=== PATIENT | male | born 1950 | race Caucasian/White ===

== ENCOUNTER 2020-01-05 11:50 | Inpatient (IN) | payer MEDICARE ==
--- NOTE | 2020-01-05 12:02 | ERPHSYRPT ---
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 Gatica presents with several day history of diarrhea and worsening weakness. Patient was notified today that he has tested positive for COVID-19 virus. He was sent to the emergency room for evaluation and presumed admission. Patient states he does not have significant shortness of breath and he does not have any chest pain or abdominal pain. He does not know of anyone with the COVID-19 positive test. Timing/Duration: day(s) Cough Quality/Degree: mild Possible Cause: no prior episodes Associated Symptoms: cough, other (Weakness and diarrhea), No fever, No muscle aches, No shortness of breath Allergies/Adverse Reactions: No Known Drug Allergies Allergy (Verified 01/05/20 11:56) Home Medications: No Reportable Medications [No Reported Medications] 01/05/20 [History] Hx Tetanus, Diphtheria Vaccination/Date Given: Yes Hx Influenza Vaccination/Date Given: No Hx Pneumococcal Vaccination/Date Given: No Travel Risk - International Travel Have you traveled outside of the country in past 3 weeks: No - Coronavirus Screening Symptoms: Vomiting/Diarrhea Close contact with a COVID-19 positive Pt in past 14-21 Days: No - Review of Systems Constitutional: Weakness Eyes: No Symptoms Ears, Nose, & Throat: No Symptoms Respiratory: Cough (Mild) Cardiac: No Symptoms Abdominal/Gastrointestinal: Diarrhea Genitourinary Symptoms: No Symptoms Musculoskeletal: No Symptoms Skin: No Symptoms Neurological: No Symptoms Psychological: No Symptoms Endocrine: No Symptoms Hematologic/Lymphatic: No Symptoms Immunological/Allergic: No Symptoms All Other Systems: Reviewed and Negative - Past Medical History Pertinent Past Medical History: No Neurological History: No Pertinent History ENT History: No Pertinent History Cardiac History: No Pertinent History Respiratory History: COPD Endocrine Medical History: No Pertinent History Musculoskeletal History: No Pertinent History GI Medical History: No Pertinent History History: No Pertinent History Psycho-Social History: No Pertinent History - Past Surgical History Past Surgical History: No Neuro Surgical History: No Pertinent History Cardiac: No Pertinent History Gastrointestinal: No Pertinent History Genitourinary: No Pertinent History Musculoskeletal: No Pertinent History Male Surgical History: No Pertinent History - Social History Smoking Status: Current every day smoker (3/4 ppd currently) Exposure to second hand smoke: No Drug Use: none Patient Lives Alone: No - Nursing Vital Signs Nursing Vital Signs: Initial Vital Signs Respiratory Rate 01/05/20 12:06 Pain Scale Pain Intensity 0 - Physical Exam General Appearance: mild distress, alert Eye Exam: PERRL/EOMI, eyes nml inspection Ears, Nose, Throat Exam: normal ENT inspection, moist mucous membranes Neck Exam: normal inspection, non-tender, supple, full range of motion Respiratory Exam: normal breath sounds, lungs clear, airway intact, No chest tenderness, No respiratory distress Cardiovascular Exam: regular rate/rhythm, normal heart sounds, normal peripheral pulses Gastrointestinal/Abdomen Exam: soft, normal bowel sounds, No tenderness Rectal Exam: not done Back Exam: normal inspection, normal range of motion, No CVA tenderness, No vertebral tenderness Extremity Exam: normal inspection, normal range of motion, pelvis stable Neurologic Exam: alert, oriented x 3, cooperative Skin Exam: normal color, warm, dry Lymphatic Exam: No adenopathy SpO2 Interpretation: normal O2 Delivery: Room Air - Course Nursing assessment & vital signs reviewed: Yes Ordered Tests: Active Orders 24 hr Category Date Time Status EKG-ER Only STAT Care 01/05/20 12:14 Active IV Insertion STAT Care 01/05/20 12:14 Active Isolation, Initiate & Maintain STAT Care 01/05/20 12:14 Active CHEST 1 VIEW (PORTABLE) Stat Exams 01/05/20 12:41 Completed CHEST WITH CONTRAST [CT] Stat Exams 01/05/20 14:12 Completed CBC W DIFF Stat Lab 01/05/20 12:20 Completed CMP Stat Lab 01/05/20 12:20 Completed D-DIMER QUANTITATIVE Stat Lab 01/05/20 12:20 Completed Ferritin Stat Lab 01/05/20 12:20 Completed LDH-LACTATE DEHYDROGENASE Stat Lab 01/05/20 12:20 Completed Lactic Acid Stat Lab 01/05/20 12:14 Completed Transfer Order Routine Transfer 01/05/20 Ordered Medication Summary Generic Name Dose Route Start Last Admin Trade Name Freq PRN Reason Stop Dose Admin Sodium Chloride 1,000 mls @ 100 mls/hr 01/05/20 12:15 01/05/20 12:27 Sodium Chloride 0.9% 1000 Ml IV 02/04/20 12:14 100 mls/hr .Q10H SAVANAH Administration Discontinued Medications Generic Name Dose Route Start Last Admin Trade Name Tanvirq PRN Reason Stop Dose Admin Ondansetron HCl 4 mg 01/05/20 12:14 01/05/20 15:25 Zofran 4 Mg/2 Ml Vial IV 01/05/20 12:15 Not Given STAT ONE Ondansetron HCl Confirm 01/05/20 12:23 Zofran 4 Mg/2 Ml Vial Administered 01/05/20 12:24 Dose 4 mg .ROUTE .STK-MED ONE Lab/Rad Data: Laboratory Result Diagrams 01/05/20 12:20 01/05/20 12:20 Laboratory Results 01/05/20 01/05/20 01/05/20 Range/Units 12:30 12:20 12:20 WBC (4.0-10.5) K/mm3 RBC (4.1-5.6) M/mm3 Hgb (12.5-18.0) gm/dl Hct (42-50) % MCV (78-100) fl MCH (26-32) pg MCHC (32-36) g/dl RDW (11.5-14.0) % Plt Count (150-450) K/mm3 MPV (7.5-11.0) fl Gran % (36.0-66.0) % Eos # (Auto) (0-0.5) Absolute Lymphs (auto) (1.0-4.6) Absolute Monos (auto) (0.0-1.3) Lymphocytes % (24.0-44.0) % Monocytes % (0.0-12.0) % Eosinophils % (0.00-5.0) % Basophils % (0.0-0.4) % Absolute Granulocytes (1.4-6.9) Basophils # (0-0.4) D-Dimer 1521 H* (215-500) ng/mL Sodium (137-145) mmol/L Potassium (3.5-5.1) mmol/L Chloride (98-107) mmol/L Carbon Dioxide (22-30) mmol/L Anion Gap (5-15) MEQ/L BUN (9-20) mg/dL Creatinine (0.66-1.25) mg/dL Estimated GFR ML/MIN Glucose (74-106) mg/dL Lactic Acid (0.4-2.0) Calcium (8.4-10.2) mg/dL Ferritin 689 H (17.9-464) ng/mL Total Bilirubin (0.2-1.3) mg/dL AST (17-59) U/L ALT (0-50) U/L Alkaline Phosphatase (38-126) U/L Lactate Dehydrogenase (120-246) U/L Serum Total Protein (6.3-8.2) g/dL Albumin (3.5-5.0) g/dL Influenza Type A Ag NEGATIVE (NEGATIVE) Influenza Type B Ag NEGATIVE (NEGATIVE) RSV (PCR) NEGATIVE (Negative) 01/05/20 01/05/20 01/05/20 Range/Units 12:20 12:20 12:14 WBC 4.6 (4.0-10.5) K/mm3 RBC 5.07 (4.1-5.6) M/mm3 Hgb 15.7 (12.5-18.0) gm/dl Hct 46.5 (42-50) % MCV 91.7 (78-100) fl MCH 31.0 (26-32) pg MCHC 33.8 (32-36) g/dl RDW 13.9 (11.5-14.0) % Plt Count 114 L (150-450) K/mm3 MPV 10.4 (7.5-11.0) fl Gran % 75.8 H (36.0-66.0) % Eos # (Auto) 0.01 (0-0.5) Absolute Lymphs (auto) 0.64 L (1.0-4.6) Absolute Monos (auto) 0.45 (0.0-1.3) Lymphocytes % 14.0 L (24.0-44.0) % Monocytes % 9.8 (0.0-12.0) % Eosinophils % 0.2 (0.00-5.0) % Basophils % 0.2 (0.0-0.4) % Absolute Granulocytes 3.46 (1.4-6.9) Basophils # 0.01 (0-0.4) D-Dimer (215-500) ng/mL Sodium 137 (137-145) mmol/L Potassium 4.2 (3.5-5.1) mmol/L Chloride 106 (98-107) mmol/L Carbon Dioxide 22 (22-30) mmol/L Anion Gap 13.3 (5-15) MEQ/L BUN 25 H (9-20) mg/dL Creatinine 1.42 H (0.66-1.25) mg/dL Estimated GFR 52.4 ML/MIN Glucose 126 H (74-106) mg/dL Lactic Acid 2.2 H (0.4-2.0) Calcium 9.4 (8.4-10.2) mg/dL Ferritin (17.9-464) ng/mL Total Bilirubin 0.60 (0.2-1.3) mg/dL AST 63 H (17-59) U/L ALT 36 (0-50) U/L Alkaline Phosphatase 65 (38-126) U/L Lactate Dehydrogenase 673 H (120-246) U/L Serum Total Protein 7.4 (6.3-8.2) g/dL Albumin 3.9 (3.5-5.0) g/dL Influenza Type A Ag (NEGATIVE) Influenza Type B Ag (NEGATIVE) RSV (PCR) (Negative) - Progress Progress: improved, re-examined Air Movement: good Progress Note: 01/05/20 13:09 Chest x-ray read by radiologist no acute cardiopulmonary process. Chronic featu res only. 01/05/20 13:[address] Gomez, who is the COVID-19 unit hospitalist product safety consultant, conc erning this patient. I reviewed the patient history, condition, laboratory results and chest x-ray findings. Dr. Gomez wanted me to obtain a d-dimer. If it is elevated we will do a CTA of the chest. He accepts the patient for admission into the COVID unit here at [facility]. However, we will wait until the d-dimer result is back. And proceed from there. 01/05/20 15:28 CTA of chest: Pulmonary embolus evaluation limited by respiration artifact. No central pulmonary emboli present. Pulmonary emphysema with extensive scattered fibrosis/scarring bilateral upper lobe noncalcified masslike opacities malignancy versus fibrosis/scarring Blood Culture(s) Obtained: No Discussed with DrDanyelle: Other (Dr. Villalba.) Counseled pt/family regarding: lab results, diagnosis, rad results - Departure Departure Disposition: In-patient Admission Clinical Impression: COVID-19 virus infection, Weakness, Diarrhea Condition: Fair Critical Care Time: No Referrals: [facility] [Primary Care Provider] -
[2020-01-05] MEDS ORDERED: Zofran 4 MG/2 ML VIAL IV ONE (12:14)
[2020-01-05] MEDS ORDERED: Sodium Chloride 0.9% 1000 ML 1,000 ML IV SCH ×2 (12:15→15:57)
[2020-01-05] MEDS ORDERED: Zofran 4 MG/2 ML VIAL ONE (12:23)
[2020-01-05 12:32] LABS: Absolute Neutrophil Ct (ANC) 3.46 (1.4-6.9); BASOPHIL % 0.2 % (0.0-0.4); Basophil (Absolute #) 0.01 (0-0.4); Eosinophil % 0.2 % (0.00-5.0); Eosinophil (Absolute #) 0.01 (0-0.5); Hematocrit 46.5 % (42-50); Hemoglobin 15.7 gm/dl (12.5-18.0); Lymphocyte (Absolute #) 0.64 (1.0-4.6); Mean Cell Volume 91.7 fl (78-100); Mean Corpuscular Hgb Concent. 33.8 g/dl (32-36); Mean Platelet Volume 10.4 fl (7.5-11.0); Monocyte (Absolute #) 0.45 (0.0-1.3); Monocytes % 9.8 % (0.0-12.0); Neutrophil % 75.8 % (36.0-66.0); Platelet Count 114 K/mm3 (150-450); Red Blood Count 5.07 M/mm3 (4.1-5.6); Red Cell Distribution Width 13.9 % (11.5-14.0); White Blood Count 4.6 K/mm3 (4.0-10.5)
[2020-01-05 12:46] LABS: ALBUMIN 3.9 g/dL (3.5-5.0); ANION GAP 13.3 MEQ/L (5-15); BILIRUBIN,TOTAL 0.6 mg/dL (0.2-1.3); Calcium 9.4 mg/dL (8.4-10.2); Creatinine 1 1.42 mg/dL (0.66-1.25); EST GLOMERULAR FILTRATION RATE 52.4 ML/MIN; Potassium 4.2 mmol/L (3.5-5.1); Total Protein 7.4 g/dL (6.3-8.2)
--- NOTE | 2020-01-05 13:06 | XRAY ---
Indication: Cough. Suspect Covid 19. Comparison: January 31, 2016. Portable chest again demonstrates COPD with scattered bilateral fibrosis/scarring. Previous left lung airspace disease has cleared. No focal infiltrate, consolidation, or large effusion. Heart is not enlarged. Bony thorax intact again with mild osteopenia, old left clavicle fracture, and mild scoliosis. Impression: Nonacute chest with chronic features.
[2020-01-05 13:07] LABS: INFLUENZA A NEGATIVE (NEGATIVE); INFLUENZA B NEGATIVE (NEGATIVE); RESPIRATORY SYNCTIAL VIRUS NEGATIVE (Negative)
--- NOTE | 2020-01-05 15:24 | XRAY ---
Indication: Short of breath, fever, and elevated d-dimer. Positive Covid 19. COPD. Multiple contiguous axial images obtained through the chest using 80 cc Isovue 370 contrast and PE protocol. Comparison: None There is good opacification of the pulmonary arteries to include the lobar and segmental branches. However respiration artifact limits evaluation of the more distal segmental branches. No central pulmonary embolus. Heart is not enlarged. Aorta is mildly arteriosclerotic without aneurysm/dissection. Small mediastinal nodes, largest precarinal measuring 1.2 x 1.6 cm. No pathologic hilar lymphadenopathy. Lungs demonstrates diffuse pulmonary emphysema with scattered fibrosis/scarring. Right upper lobe with demonstrates large irregular noncalcified masslike opacity measuring at least 2.0 x 5.7 x 3.9 cm. Left upper lobe demonstrates 3 small irregular noncalcified masslike opacities, largest anterior medially measuring 1.1 x 1.7 x 2.6 cm. Findings may represent fibrosis/scarring with malignancy not completely excluded. No infiltrate or effusion. Bony thorax intact with mild osteopenia and old left clavicle fracture. Limited upper abdomen demonstrates nonobstructing right renal punctate calculus and 1.2 cm left mid renal exophytic cyst. Impression: 1. Pulmonary embolus evaluation limited by respiration artifact. No central pulmonary ambers. 2. Pulmonary emphysema with extensive scattered fibrosis/scarring. 3. Bilateral upper lobe noncalcified masslike opacities as detailed. Rule out malignancy versus fibrosis/scarring. Outside comparison studies recommended if available. If not, PET/CT may yield further information. 4. Incidental right renal micro-calculus, left renal cyst, and chronic bony findings.
[2020-01-05] MEDS ORDERED: TYLENOL 325 MG PO PRN (15:57)
[2020-01-05] MEDS ORDERED: Zofran 4 MG/2 ML VIAL IV PRN (15:57)
[2020-01-05] MEDS ORDERED: Ativan 1 MG PO PRN (16:04)
[2020-01-05] MEDS ORDERED: ZOFRAN ODT 4 MG PO PRN (16:12)
[2020-01-05] MEDS ORDERED: Lactated Ringers 1,000 ML IV SCH (16:30)
[2020-01-05] MEDS ORDERED: REMDESIVIR 200 MG in Sodium Chloride 0.9% 250 ML 250 ML IV SCH (17:00)
[2020-01-05] MEDS: ENOXAPARIN SODIUM SQ SCH (17:01)
[2020-01-05] MEDS ORDERED: Ativan 2 MG/1 ML VIAL IV PRN (17:24)
[2020-01-05] MEDS: Pepcid 20 MG VIAL IV SCH (17:42)
[2020-01-05] MEDS: Decadron 4 MG INJ IV SCH (17:42)
[2020-01-05] MEDS ORDERED: Decadron 4 MG PO SCH (18:30)
[2020-01-05] MEDS ORDERED: Ativan 1 MG PO SCH (22:00)
[2020-01-05] MEDS ORDERED: Pepcid 20 MG PO SCH (22:00)
[2020-01-05] MEDS ORDERED: Ativan 2 MG/1 ML VIAL IV SCH (22:00)
[2020-01-06 05:26] LABS: Absolute Neutrophil Ct (ANC) 2.08 (1.4-6.9); Basophil (Absolute #) 0 (0-0.4); Eosinophil (Absolute #) 0 (0-0.5); Hematocrit 42.7 % (42-50); Hemoglobin 14.5 gm/dl (12.5-18.0); Lymphocyte (Absolute #) 0.35 (1.0-4.6); Lymphocytes % 12.4 % (24.0-44.0); Mean Cell Volume 90.7 fl (78-100); Mean Corpuscular Hemoglobin 30.8 pg (26-32); Mean Platelet Volume 10.4 fl (7.5-11.0); Monocytes % 14.1 % (0.0-12.0); Neutrophil % 73.5 % (36.0-66.0); Platelet Count 125 K/mm3 (150-450); Red Blood Count 4.71 M/mm3 (4.1-5.6); Red Cell Distribution Width 13.7 % (11.5-14.0); White Blood Count 2.8 K/mm3 (4.0-10.5)
[2020-01-06 05:43] LABS: ALBUMIN 3.4 g/dL (3.5-5.0); ALKALINE PHOSPHATASE 62 U/L (38-126); ANION GAP 11.3 MEQ/L (5-15); BLOOD UREA NITROGEN 22 mg/dL (9-20); CHLORIDE 111 mmol/L (98-107); Calcium 8.4 mg/dL (8.4-10.2); Carbon Dioxide 17 mmol/L (22-30); Creatinine 1 1.01 mg/dL (0.66-1.25); EST GLOMERULAR FILTRATION RATE > 60.0 ML/MIN; Glucose 133 mg/dL (74-106); Potassium 4.5 mmol/L (3.5-5.1); SGOT/AST 59 U/L (17-59); SGPT/ALT 36 U/L (0-50); SODIUM 135 mmol/L (137-145); Total Protein 6.6 g/dL (6.3-8.2)
[2020-01-06 06:47] LABS: Slide Review 1 YES
[2020-01-06] MEDS: Pepcid 20 MG VIAL IV SCH (10:51)
[2020-01-06] MEDS: Decadron 4 MG INJ IV SCH (10:51)
[2020-01-06] MEDS: ENOXAPARIN SODIUM SQ SCH (10:59)
[2020-01-06] MEDS ORDERED: Lasix 20 MG/2 ML IV ONE (11:00)
--- NOTE | 2020-01-06 11:09 | SSS ---
DISCHARGE DIAGNOSES: 1) COVID. 2) COVID GASTRITIS. 3) COVID BRONCHITIS. 4) CHRONIC OBSTRUCTIVE PULMONARY DISEASE. 5) MASS IN LUNG. HISTORY: The patient came in after eight days of weakness and shortness of breath, five days of nausea. He has had diarrhea. No fever. Just not feeling well. He had COVID test in the emergency room which was positive. He does not know of anyone else he has been with who has COVID in the last 14 days. He denies any high fevers or chills. He also had some diarrhea and abdominal pain. No problems urinating. No muscle aches or pains. Skin no symptoms. He is normally short of breath. He is a heavy smoker. He quit the other day. He has history of chronic obstructive pulmonary disease. He does have a Proventil inhaler I believe. History of GI problems. He does live with his . No drug use. PHYSICAL EXAMINATION: The patient is alert, orientated and a little older than stated 69 years of age. A very pleasant man. HEENT: Normal. NECK: Supple without adenopathy. CHEST: Clear. CVS: No murmurs or gallops. ABDOMEN: Soft. EXTREMITIES: No cyanosis. Thin, still muscular. IMPRESSION: The patient has COVID with hypoxia. D-dimer is 1,500. His white count is normal. Chest x-ray is okay but CT scan showed mass in the upper lobe of both sides unknown etiology and will have to be worked up later. Further questioning did show that he has been vomiting and not holding fluids well. PLAN: The patient was admitted for IV steroids, Lovenox, Zofran, Remdesivir, oxygen. PROGNOSIS: Fair. I note he is getting more hypoxic as the day goes on, will keep a close watch on him.
[2020-01-06 13:22] VITALS: BP 99/71
[2020-01-06 15:02] VITALS: O2SAT 92
[2020-01-06 15:16] VITALS: PULSE 79
[2020-01-06] MEDS ORDERED: REMDESIVIR 100 MG in Sodium Chloride 0.9% 100 ML IVPB 100 ML IV SCH (17:00)
== END 2020-01-06 15:55 | disposition short-term general hospital (02) | DRG 179 ==
LOC: ED 11:50 → MED SURG 15:56
PROVIDERS: ADMIT Family Medicine; ATTEND Family Medicine
DX: U07.1 COVID-19 (principal); K29.70 Gastritis, unspecified, without bleeding; J40 Bronchitis, not specified as acute or chronic; J44.9 Chronic obstructive pulmonary disease, unspecified; R91.8 Other nonspecific abnormal finding of lung field; R53.1 Weakness; R09.02 Hypoxemia; R19.7 Diarrhea, unspecified
CPT/HCPCS: 36000; 36415; 71045; 71260; 80053; 82728; 83605; 83615; 85025; 85379; 87631; 93005; 94762; 96360; 96361; 99285; U0003; J1100; J1650; J1940; J2060; J2405

== ENCOUNTER 2020-01-26 10:15 | Inpatient (IN) | payer MEDICARE ==
[2020-01-26] MEDS ORDERED: DUONEB 0.5-3 MG/3 ml Neb IH ONE (10:20)
--- NOTE | 2020-01-26 10:36 | ERPHSYRPT ---
- History of Present Illness Time Seen by Provider: 01/26/20 10:16 Source: patient, EMS Exam Limitations: no limitations Patient Subjective Stated Complaint: pt here for increase sob today, pt was covid 19 postive 01/13/2020. pt is on home o2 at 2l nc at home and was 81%, o2 increased, cough Triage Nursing Assessment: pt alert, resp easy, sat 71% on 3 l after moving self over on to bed. face mask in place, abd soft, moves all ext well Physician History: 70yo wm released from [facility] on 01/17 presents w dyspnea x 4 days. Pt is O2 dep at home. Cough is minimal, and he denies fever/N/V/CP/melena/hematochezia. He has had mild diarrhea and smoked 1ppd until covid admit. Timing/Duration: other (4days) Activities at Onset: rest Possible Cause: occasional episodes Modifying Factors: Improves With: activity Associated Symptoms: cough, No constant, No intermittent, No anxiety, No chest p ain/discomfort, No edema, No fever, No insomnia, No loss of appetite, No lightheadedness, No wheezing, No weakness, No ankle swelling, No chills, No hemoptysis, No calf pain, No dizziness, No heaviness, No heart racing, No lightheadedness, No leg swelling, No muscle spasms feet, No muscle spasms hands, No painful breathing, No productive cough, No sweating, No tightness, No tingling face Allergies/Adverse Reactions: levofloxacin [From Levaquin] Adverse Reaction (Verified 01/26/20 10:31) Home Medications: No Reportable Medications [No Reported Medications] 01/05/20 [History] Hx Tetanus, Diphtheria Vaccination/Date Given: Yes Hx Influenza Vaccination/Date Given: No Hx Pneumococcal Vaccination/Date Given: No Immunizations Up to Date: Yes Travel Risk - International Travel Have you traveled outside of the country in past 3 weeks: No - Coronavirus Screening Are you exhibiting any of the following symptoms?: Yes Symptoms: Cough: New Onset, Shortness of Breath - Review of Systems Constitutional: No Symptoms Eyes: No Symptoms Ears, Nose, & Throat: No Symptoms Respiratory: Cough, Dyspnea Cardiac: No Symptoms Abdominal/Gastrointestinal: No Symptoms, Diarrhea Genitourinary Symptoms: No Symptoms Musculoskeletal: No Symptoms Skin: No Symptoms Neurological: No Symptoms Psychological: No Symptoms Endocrine: No Symptoms Hematologic/Lymphatic: No Symptoms Immunological/Allergic: No Symptoms - Past Medical History Pertinent Past Medical History: Yes Neurological History: No Pertinent History ENT History: No Pertinent History Cardiac History: No Pertinent History Respiratory History: COPD Endocrine Medical History: No Pertinent History Musculoskeletal History: No Pertinent History GI Medical History: No Pertinent History History: No Pertinent History Psycho-Social History: No Pertinent History - Past Surgical History Past Surgical History: No Neuro Surgical History: No Pertinent History Cardiac: No Pertinent History Gastrointestinal: No Pertinent History Genitourinary: No Pertinent History Musculoskeletal: No Pertinent History Male Surgical History: No Pertinent History - Social History Smoking Status: Former smoker Exposure to second hand smoke: No Drug Use: none Patient Lives Alone: Yes - Nursing Vital Signs Nursing Vital Signs: Initial Vital Signs Respiratory Rate 20 01/26/20 10:17 O2 Sat by Pulse Oximetry 92 L 01/26/20 10:17 Pain Scale Pain Intensity 0 - Physical Exam General Appearance: mild distress Eye Exam: PERRL/EOMI, eyes nml inspection Ears, Nose, Throat Exam: hearing grossly normal Neck Exam: normal inspection, non-tender Respiratory Exam: respiratory distress (Mild-Mod), crackles/rales (Rales 1/4 up B) Cardiovascular/Chest Exam: tachycardia, No murmur, No JVD Abdominal/Gastrointestinal Exam: soft, normal bowel sounds, No tenderness Extremity Exam: non-tender Neurologic Exam: alert, oriented x 3, cooperative, 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, normal mood/affect, nml cerebellar function, sensation nml, No motor deficits, No sensory deficit Skin Exam: mottled, pale Lymphatic Exam: No adenopathy SpO2 Interpretation: borderline oxygenation SpO2: 92 O2 Delivery: Non-rebreather - Course EKG Interpreted by Me: RATE (Sinus tach/Normal QT-QTc/No acute ST-T wave changes) - Radiology Exams Chest X-ray Interpretation: Discussed w/ radiologist (LLL infiltrate per Rad) Ordered Tests: Active Orders 24 hr Category Date Time Status EKG-ER Only STAT Care 01/26/20 10:19 Completed Heart-Healthy Diet Diet 01/26/20 Dinner Active CHEST 1 VIEW (PORTABLE) Stat Exams 01/26/20 10:17 Completed ABG [ARTERIAL BLOOD GASES] Stat Lab 01/26/20 10:25 Completed ABG [ARTERIAL BLOOD GASES] Stat Lab 01/26/20 13:49 Completed BLOOD CULTURE Stat Lab 01/26/20 12:11 Stop Req CBC W DIFF AM.LAB Lab 01/27/20 04:00 Ordered CBC W DIFF Stat Lab 01/26/20 10:30 Completed CMP AM.LAB Lab 01/27/20 04:00 Ordered CMP Stat Lab 01/26/20 10:30 Completed D-DIMER QUANTITATIVE Stat Lab 01/26/20 Completed Lactic Acid Stat Lab 01/26/20 10:26 Completed Manual Differential NC Stat Lab 01/26/20 10:30 Completed NT PRO BNP Urgent Lab 01/26/20 10:30 Completed PROTIME WITH INR Stat Lab 01/26/20 10:30 Completed PTT Stat Lab 01/26/20 10:30 Completed TROPONIN Q3H Lab 01/26/20 10:30 Completed TROPONIN Q3H Lab 01/26/20 13:25 Completed TROPONIN Q3H Lab 01/26/20 16:30 Ordered TROPONIN Q3H Lab 01/26/20 19:30 Ordered TROPONIN Q3H Lab 01/26/20 22:30 Ordered Transfer Order Routine Transfer 01/26/20 Completed Medication Summary Generic Name Dose Route Start Last Admin Trade Name Freq PRN Reason Stop Dose Admin Albuterol Sulfate 4 puff 01/26/20 15:00 01/26/20 14:35 Ventolin Common Canister IH 02/25/20 14:59 4 puff Q4HRT SAVANAH Administration Dexamethasone Sodium Phosphate 4 mg 01/26/20 13:00 01/26/20 13:05 Decadron 4 Mg Inj IV 02/25/20 12:59 4 mg Q6H SAVANAH Administration Dexamethasone Sodium Phosphate 4 mg 01/26/20 22:00 Decadron 4 Mg Inj IV 02/25/20 21:59 BID SAVANAH Enoxaparin Sodium 40 mg 01/26/20 15:00 Enoxaparin Sodium SQ 02/25/20 14:59 DAILY SAVANAH Sodium Chloride 1,000 mls @ 80 mls/hr 01/26/20 13:15 01/26/20 13:40 Sodium Chloride 0.9% 1000 Ml IV 02/25/20 13:14 80 mls/hr .[id number] SAVANAH Administration Azithromycin 500 mg in 250 mls @ 250 mls/hr 01/26/20 15:00 Zithromax 500 Mg/ 250 Ml Nacl Premix IV 02/25/20 14:59 Q24H10 SAVANAH Ceftriaxone Sodium/Dextrose 1 g in 50 mls @ 100 mls/hr 01/27/20 10:00 Rocephin 1 Gm-D5w 50 Ml Bag IV 02/26/20 09:59 Q24H10 SAVANAH Remdesivir 200 mg/ Sodium 250 mls @ 125 mls/hr 01/26/20 13:07 01/26/20 13:40 Chloride IV 01/26/20 15:06 125 mls/hr ONCE ONE Administration Ondansetron HCl 4 mg 01/26/20 13:02 Zofran 4 Mg/2 Ml Vial IV 02/25/20 13:01 Q6H PRN PRN NAUSEA/VOMITING Discontinued Medications Generic Name Dose Route Start Last Admin Trade Name Freq PRN Reason Stop Dose Admin Albuterol Sulfate 4 puff 01/26/20 11:19 01/26/20 10:26 Ventolin Common Canister IH 01/26/20 11:20 4 puff ONCE ONE Administration Albuterol/Ipratropium 3 ml 01/26/20 10:20 01/26/20 11:16 Duoneb 0.5-3 Mg/3 Ml Neb IH 01/26/20 10:21 Not Given STAT ONE Ceftriaxone Sodium/Dextrose 1 g in 50 mls @ 100 mls/hr 01/26/20 11:44 01/26/20 12:38 Rocephin 1 Gm-D5w 50 Ml Bag IV 01/26/20 12:13 Infused STAT STA Infusion Ceftriaxone Sodium/Dextrose Confirm 01/26/20 12:03 Rocephin 1 Gm-D5w 50 Ml Bag Administered 01/26/20 12:04 Dose 1 g in 50 mls @ ud IV .K-MED ONE Lab/Rad Data: Laboratory Result Diagrams 01/26/20 10:30 01/26/20 10:30 Laboratory Results 01/26/20 01/26/20 01/26/20 Range/Units 13:49 13:25 10:30 WBC (4.0-10.5) K/mm3 RBC (4.1-5.6) M/mm3 Hgb (12.5-18.0) gm/dl Hct (42-50) % MCV (78-100) fl MCH (26-32) pg MCHC (32-36) g/dl RDW (11.5-14.0) % Plt Count (150-450) K/mm3 MPV (7.5-11.0) fl PT (8.83-12.87) SECONDS INR (0.8-3.0) APTT (24.1-36.1) SECONDS Puncture Site LEFT RADIAL pCO2 28 L (35-45) mmHg pO2 134 H* (75-100) mmHg Base Excess -0.9 (-2.0-2.0) O2 Saturation 97.3 (94-100) g/dF ABG pH 7.49 H (7.35-7.45) ABG HCO3 21.3 L (22-28) ABG O2 Sat (Measured) 99.4 (95-100) % Jovani Test YES A-a Gradient 544 a/A Ratio 0.20 Hemoglobin 12.6 Carboxyhemoglobin 1.1 (0.0-6.9) % THgb Methemoglobin 0.9 L (1.4-1.5) % Potassium 4.2 (3.5-5.1) Temperature 37.0 C POC O2 Flow Rate 100 % Sodium (137-145) mmol/L Chloride (98-107) mmol/L Carbon Dioxide (22-30) mmol/L Anion Gap (5-15) MEQ/L BUN (9-20) mg/dL Creatinine (0.66-1.25) mg/dL Estimated GFR ML/MIN Glucose (74-106) mg/dL Lactic Acid (0.4-2.0) Calcium (8.4-10.2) mg/dL Total Bilirubin (0.2-1.3) mg/dL AST (17-59) U/L ALT (0-50) U/L Alkaline Phosphatase (38-126) U/L Troponin I < 0.012 < 0.012 (0.000-0.034) ng/mL NT-Pro-B Natriuret Pep 365 (0-900) pg/mL Serum Total Protein (6.3-8.2) g/dL Albumin (3.5-5.0) g/dL 01/26/20 01/26/20 01/26/20 Range/Units 10:30 10:30 10:30 WBC 8.2 (4.0-10.5) K/mm3 RBC 4.07 L (4.1-5.6) M/mm3 Hgb 12.5 (12.5-18.0) gm/dl Hct 38.9 L (42-50) % MCV 95.6 (78-100) fl MCH 30.7 (26-32) pg MCHC 32.1 (32-36) g/dl RDW 13.7 (11.5-14.0) % Plt Count 151 (150-450) K/mm3 MPV 10.1 (7.5-11.0) fl PT 23.5 H (8.83-12.87) SECONDS INR 2.06 (0.8-3.0) APTT 35.4 (24.1-36.1) SECONDS Puncture Site pCO2 (35-45) mmHg pO2 (75-100) mmHg Base Excess (-2.0-2.0) O2 Saturation (94-100) g/dF ABG pH (7.35-7.45) ABG HCO3 (22-28) ABG O2 Sat (Measured) (95-100) % Jovani Test A-a Gradient a/A Ratio Hemoglobin Carboxyhemoglobin (0.0-6.9) % THgb Methemoglobin (1.4-1.5) % Potassium 4.5 (3.5-5.1) Temperature C POC O2 Flow Rate % Sodium 136 L (137-145) mmol/L Chloride 107 (98-107) mmol/L Carbon Dioxide 23 (22-30) mmol/L Anion Gap 10.0 (5-15) MEQ/L BUN 13 (9-20) mg/dL Creatinine 0.94 (0.66-1.25) mg/dL Estimated GFR > 60.0 ML/MIN Glucose 112 H (74-106) mg/dL Lactic Acid (0.4-2.0) Calcium 9.0 (8.4-10.2) mg/dL Total Bilirubin 0.80 (0.2-1.3) mg/dL AST 30 (17-59) U/L ALT 40 (0-50) U/L Alkaline Phosphatase 86 (38-126) U/L Troponin I (0.000-0.034) ng/mL NT-Pro-B Natriuret Pep (0-900) pg/mL Serum Total Protein 7.4 (6.3-8.2) g/dL Albumin 3.4 L (3.5-5.0) g/dL 01/26/20 01/26/20 Range/Units 10:26 10:25 WBC (4.0-10.5) K/mm3 RBC (4.1-5.6) M/mm3 Hgb (12.5-18.0) gm/dl Hct (42-50) % MCV (78-100) fl MCH (26-32) pg MCHC (32-36) g/dl RDW (11.5-14.0) % Plt Count (150-450) K/mm3 MPV (7.5-11.0) fl PT (8.83-12.87) SECONDS INR (0.8-3.0) APTT (24.1-36.1) SECONDS Puncture Site RIGHT RADIAL pCO2 27 L (35-45) mmHg pO2 54 L (75-100) mmHg Base Excess -3.2 L (-2.0-2.0) O2 Saturation 87.0 L (94-100) g/dF ABG pH 7.46 H (7.35-7.45) ABG HCO3 19.2 L (22-28) ABG O2 Sat (Measured) 89.0 L (95-100) % Jovani Test YES A-a Gradient 625 a/A Ratio 0.08 Hemoglobin 12.8 Carboxyhemoglobin 1.8 (0.0-6.9) % THgb Methemoglobin 0.5 L (1.4-1.5) % Potassium 4.0 (3.5-5.1) Temperature 37.0 C POC O2 Flow Rate 100 % Sodium (137-145) mmol/L Chloride (98-107) mmol/L Carbon Dioxide (22-30) mmol/L Anion Gap (5-15) MEQ/L BUN (9-20) mg/dL Creatinine (0.66-1.25) mg/dL Estimated GFR ML/MIN Glucose (74-106) mg/dL Lactic Acid 1.2 (0.4-2.0) Calcium (8.4-10.2) mg/dL Total Bilirubin (0.2-1.3) mg/dL AST (17-59) U/L ALT (0-50) U/L Alkaline Phosphatase (38-126) U/L Troponin I (0.000-0.034) ng/mL NT-Pro-B Natriuret Pep (0-900) pg/mL Serum Total Protein (6.3-8.2) g/dL Albumin (3.5-5.0) g/dL - Progress Air Movement: fair Progress Note: 01/26/20 13:00 Admit to Covid unit per Dr. Gomez 01/26/20 13:10 Pt w low sats on 6L NC and only minimally improved w 100% NR mask. Pt much improved on high flow O2. [facility] to admit here which pt prefers. Dr. Gomez wants to start Decadron 4mg IV BID and Remdisivir. Blood cultures done and rocephin 1gm IV given. 01/26/20 14:54 Counseled pt/family regarding: lab results, diagnosis, rad results - Departure Departure Disposition: Observation Clinical Impression: Pneumonia Condition: Stable Critical Care Time: Yes Critical Care Time(excluding separately billable procedures): Critical 30-74 mins
[2020-01-26 10:37] LABS: Hematocrit 38.9 % (42-50); Hemoglobin 12.5 gm/dl (12.5-18.0); Mean Cell Volume 95.6 fl (78-100); Mean Corpuscular Hemoglobin 30.7 pg (26-32); Mean Corpuscular Hgb Concent. 32.1 g/dl (32-36); Mean Platelet Volume 10.1 fl (7.5-11.0); Platelet Count 151 K/mm3 (150-450); Red Blood Count 4.07 M/mm3 (4.1-5.6); Red Cell Distribution Width 13.7 % (11.5-14.0); White Blood Count 8.2 K/mm3 (4.0-10.5)
[2020-01-26 10:38] LABS: A-aADO2 625; ABG HEMOGLOBIN 12.8; ABG SITE RIGHT RADIAL; ALLEN TEST OK? YES; ARTERIAL BLOOD GAS BASE EXCESS -3.2 (-2.0-2.0); ARTERIAL BLOOD GAS FIO2 100 %; ARTERIAL BLOOD GAS PCO2 27 mmHg (35-45); ARTERIAL BLOOD GAS PO2 54 mmHg (75-100); ARTERIAL BLOOD GAS pH 7.46 (7.35-7.45); CARBOXYHEMOGLOBIN 1.8 % THgb (0.0-6.9); HCO3- 19.2 (22-28); Methhemoglobin 0.5 % (1.4-1.5); paO2 pAO1 0.08
[2020-01-26 10:53] LABS: INR 2.06 (0.8-3.0); PROTIME 23.5 SECONDS (8.83-12.87)
[2020-01-26 10:56] LABS: PTT 35.4 SECONDS (24.1-36.1)
[2020-01-26 10:58] LABS: ALBUMIN 3.4 g/dL (3.5-5.0); ALKALINE PHOSPHATASE 86 U/L (38-126); BLOOD UREA NITROGEN 13 mg/dL (9-20); CHLORIDE 107 mmol/L (98-107); Carbon Dioxide 23 mmol/L (22-30); Creatinine 1 0.94 mg/dL (0.66-1.25); EST GLOMERULAR FILTRATION RATE > 60.0 ML/MIN; Glucose 112 mg/dL (74-106); Potassium 4.5 mmol/L (3.5-5.1); SGOT/AST 30 U/L (17-59); SGPT/ALT 40 U/L (0-50); SODIUM 136 mmol/L (137-145); Total Protein 7.4 g/dL (6.3-8.2)
[2020-01-26 11:18] LABS: NT PRO BNP 365 pg/mL (0-900)
[2020-01-26] MEDS ORDERED: VENTOLIN COMMON CANISTER IH ONE (11:19)
--- NOTE | 2020-01-26 11:25 | XRAY ---
Indication: Dyspnea. Positive Covid 19. Comparison: January 05, 2020. Portable chest less inflated with new mild left base infiltrate versus atelectasis and tiny effusion. Remaining chest unchanged again with COPD and scattered bilateral fibrosis/scarring. Heart is not enlarged.
[2020-01-26 11:27] LABS: TROPONIN < 0.012 ng/mL (0.000-0.034)
[2020-01-26] MEDS ORDERED: ROCEPHIN 1 Gm-D5w 50 ml Bag** 1 G/50 ML IVPB IV STA (11:44)
[2020-01-26] MEDS ORDERED: ROCEPHIN 1 Gm-D5w 50 ml Bag** 1 G/50 ML IVPB IV ONE (12:03)
[2020-01-26] MEDS ORDERED: Decadron 4 MG INJ IV SCH (13:00)
[2020-01-26] MEDS ORDERED: Zofran 4 MG/2 ML VIAL IV PRN (13:02)
[2020-01-26] MEDS ORDERED: REMDESIVIR 200 MG in Sodium Chloride 0.9% 250 ML 250 ML IV ONE (13:07)
[2020-01-26] MEDS: Sodium Chloride 0.9% 1000 ML 1,000 ML IV SCH (13:40)
[2020-01-26 13:54] LABS: A-aADO2 544; ABG HEMOGLOBIN 12.6; ABG POTASSIUM 4.2 (3.5-5.1); ABG SITE LEFT RADIAL; ALLEN TEST OK? YES; ARTERIAL BLD GAS O2 SATURATION 99.4 % (95-100); ARTERIAL BLOOD GAS BASE EXCESS -0.9 (-2.0-2.0); ARTERIAL BLOOD GAS FIO2 100 %; ARTERIAL BLOOD GAS PCO2 28 mmHg (35-45); ARTERIAL BLOOD GAS PO2 134 mmHg (75-100); ARTERIAL BLOOD GAS pH 7.49 (7.35-7.45); CARBOXYHEMOGLOBIN 1.1 % THgb (0.0-6.9); HCO3- 21.3 (22-28); HGB O2 SAT 97.3 g/dF (94-100); Methhemoglobin 0.9 % (1.4-1.5)
[2020-01-26] MEDS: VENTOLIN COMMON CANISTER IH SCH ×3 (14:35→23:00)
[2020-01-26 15:20] LABS: BAND 1 % (0.0-2.0); Eosinophil 3 % (0.00-3.0); Lymphocytes 13 % (24-44); Monocyte 6 % (0.0-12.0); Neutrophils 77 % (36.-66.); Total Cells Counted 100
[2020-01-26 15:21] LABS: Platelet Estimate NORMAL (NORMAL)
[2020-01-26] MEDS: ENOXAPARIN SODIUM SQ SCH (15:53)
[2020-01-26] MEDS: Zithromax 500 MG/ 250 ML NaCl Premix 500 MG/250 ML IVPB IV SCH (15:53)
[2020-01-26 17:33] LABS: A-aADO2 609; ABG HEMOGLOBIN 13.6; ABG POTASSIUM 4.3 (3.5-5.1); ABG SITE RIGHT RADIAL; ALLEN TEST OK? YES; ARTERIAL BLD GAS O2 SATURATION 95.2 % (95-100); ARTERIAL BLOOD GAS BASE EXCESS -3.2 (-2.0-2.0); ARTERIAL BLOOD GAS FIO2 100 %; ARTERIAL BLOOD GAS PCO2 27 mmHg (35-45); ARTERIAL BLOOD GAS PO2 70 mmHg (75-100); ARTERIAL BLOOD GAS pH 7.46 (7.35-7.45); HCO3- 19.2 (22-28); HGB O2 SAT 93.5 g/dF (94-100); Methhemoglobin 0.7 % (1.4-1.5)
[2020-01-26] MEDS: Decadron 4 MG INJ IV SCH (22:00)
[2020-01-27] MEDS: VENTOLIN COMMON CANISTER IH SCH ×5 (03:00→19:37)
[2020-01-27] MEDS: Sodium Chloride 0.9% 1000 ML 1,000 ML IV SCH ×2 (04:05→15:58)
[2020-01-27 06:00] LABS: Hematocrit 31.4 % (42-50); Hemoglobin 10.2 gm/dl (12.5-18.0); Mean Cell Volume 94.6 fl (78-100); Mean Corpuscular Hemoglobin 30.7 pg (26-32); Mean Corpuscular Hgb Concent. 32.5 g/dl (32-36); Platelet Count 147 K/mm3 (150-450); Red Blood Count 3.32 M/mm3 (4.1-5.6); Red Cell Distribution Width 13.2 % (11.5-14.0); White Blood Count 8.4 K/mm3 (4.0-10.5)
[2020-01-27 06:20] LABS: ALBUMIN 2.7 g/dL (3.5-5.0); ALKALINE PHOSPHATASE 71 U/L (38-126); ANION GAP 9.7 MEQ/L (5-15); BLOOD UREA NITROGEN 18 mg/dL (9-20); CHLORIDE 113 mmol/L (98-107); Carbon Dioxide 18 mmol/L (22-30); Creatinine 1 0.78 mg/dL (0.66-1.25); EST GLOMERULAR FILTRATION RATE > 60.0 ML/MIN; Glucose 171 mg/dL (74-106); Potassium 4.1 mmol/L (3.5-5.1); SGOT/AST 25 U/L (17-59); SGPT/ALT 31 U/L (0-50); SODIUM 137 mmol/L (137-145); Total Protein 5.9 g/dL (6.3-8.2)
[2020-01-27 06:40] LABS: Lymphocytes 4 % (24-44); Monocyte 1 % (0.0-12.0); Neutrophils 95 % (36.-66.); Platelet Estimate NORMAL (NORMAL); Total Cells Counted 100
[2020-01-27] MEDS: Zithromax 500 MG/ 250 ML NaCl Premix 500 MG/250 ML IVPB IV SCH (09:26)
[2020-01-27] MEDS: Decadron 4 MG INJ IV SCH (09:26)
[2020-01-27] MEDS: ENOXAPARIN SODIUM SQ SCH (09:26)
[2020-01-27] MEDS ORDERED: ROCEPHIN 1 Gm-D5w 50 ml Bag** 1 G/50 ML IVPB IV SCH (10:00)
[2020-01-27] MEDS ORDERED: VITAMIN D PO SCH (10:00)
--- NOTE | 2020-01-27 10:50 | HP ---
CHIEF COMPLAINT: Cannot get my breath, productive cough, history of COVID approximately two weeks ago. HISTORY OF PRESENT ILLNESS: The patient was seen here approximately two weeks ago with COVID, respiratory distress and transferred to [facility]. He spent a week up there and has been home for a week until the last three days he gradually became more short of breath and having some distress and finally called an ambulance. On the way in his PaO2 was in the 60's. His blood gas showed his CO2 was low. He was hyperventilating. Trying to keep his O2 saturation up with high flow oxygen his O2 came up to 90's while he is lying in bed and drops to 70's when he is up walking. He states before this disease he was able to hand mow several lots and he was working normally. He had no chest pain. No chronic cough. He was smoking two to three cigarettes a day for many years. He had pneumonia while he was in [place] but no severe lung disease. Associated symptoms: No fever, no loss of appetite, no loss of taste. He does have a productive cough. He occasionally does have sweats but he has not felt like he has had a fever. MEDICATIONS: Xarelto, Albuterol, vitamin D3. ALLERGIES: LEVAQUIN. SOCIAL HISTORY: The patient lives by himself and was discharged to [facility] on 01/18/2020. He later said that he had several bouts of mild diarrhea. I have asked him several times and he smokes two to three packs of cigarettes to two or three cigarettes a day. REVIEW OF SYSTEMS: HEENT: No problems hearing or seeing. CHEST: No severe shortness of breath until he got COVID. CVS: No cardiac history. No palpitations. ABDOMEN: Diarrhea x1. No abdominal pain. EXTREMITIES: The patient is strong. He looks pretty muscular for his age. PHYSICAL EXAMINATION: The patient's O2 saturation is 92 on 100% high intensity oxygen. HEENT: Seems to hear and see well. CHEST: Few wheezes bilaterally. CVS: Tachycardia. No murmurs or gallops. ABDOMEN: Soft. No tenderness or organomegaly. EXTREMITIES: Fair pulses. No cyanosis. No edema. IMPRESSION: The patient has hypoxia secondary to damage from COVID. At this time will add IV steroids, albuterol common cannister, would consider plasma with antibodies. He did earlier receive the antiviral drugs. I do not see a use in repeating that. Will give him some Ativan to help him sleep at night and would repeat the COVID test to see if he is still positive. It might make a difference in placement. I thinks perhaps he could use a CPAP machine if he is negative. Will get CBC and D-dimer tomorrow. The patient is stable at the present time. PROGNOSIS: Guarded.
[2020-01-27 19:44] LABS: A-aADO2 630; ABG POTASSIUM 4.1 (3.5-5.1); ABG SITE rr; ALLEN TEST OK? y; ARTERIAL BLD GAS O2 SATURATION 79.9 % (95-100); ARTERIAL BLOOD GAS BASE EXCESS -3.8 (-2.0-2.0); ARTERIAL BLOOD GAS FIO2 100 %; ARTERIAL BLOOD GAS PCO2 28 mmHg (35-45); ARTERIAL BLOOD GAS PO2 48 mmHg (75-100); ARTERIAL BLOOD GAS pH 7.44 (7.35-7.45); CARBOXYHEMOGLOBIN 1.4 % THgb (0.0-6.9); HGB O2 SAT 78.5 g/dF (94-100); Methhemoglobin 0.4 % (1.4-1.5); paO2 pAO1 0.07
[2020-01-27 20:44] VITALS: PULSE 103; O2SAT 92
[2020-01-27 21:21] VITALS: BP 118/74
[2020-01-27] MEDS ORDERED: Ativan 1 MG PO SCH (22:00)
== END 2020-01-27 22:00 | disposition short-term general hospital (02) | DRG 177 ==
LOC: ED 10:15 → MED SURG 14:29 → OBSVTOIN 01-27 09:00
PROVIDERS: ADMIT Family Medicine; ATTEND Family Medicine
DX: U07.1 COVID-19 (principal); J96.91 Respiratory failure, unspecified with hypoxia; J44.9 Chronic obstructive pulmonary disease, unspecified; Z79.899 Other long term (current) drug therapy
CPT/HCPCS: 36415; 36600; 80053; 82375; 82803; 83605; 83880; 84484; 85025; 85379; 85610; 85730; 86769; 87040; 93005; 93268; 94002; 94640; 94762; 94799; 96365; 96374; 99291; G0378; 71045; 99285; J0456; J0696; J1100; J1650; A9270-GY